=== PATIENT | female | born 1950 | race Caucasian/White ===

== ENCOUNTER → 2023-09-28 11:11 | Outpatient (REF) | payer OTHER, SELFPAY | LOC: HWRAD 11:11 | PROVIDERS: ATTENDING PHYSICIAN Family Medicine | DX: M25.551 Pain in right hip (principal) | CPT/HCPCS: 73502 ==

== ENCOUNTER → 2024-05-10 11:12 | Outpatient (REF) | payer MEDICARE, SELFPAY | LOC: HWRAD 11:12 | PROVIDERS: ATTENDING PHYSICIAN Nurse Practitioner Family | DX: R20.0 Anesthesia of skin (principal) | CPT/HCPCS: 73610; 73630 ==

== ENCOUNTER → 2024-05-18 07:48 | Outpatient (REF) | payer MEDICARE, SELFPAY | LOC: HWWDC 07:48 | PROVIDERS: ATTENDING PHYSICIAN Family Medicine | DX: M85.89 Other specified disorders of bone density and structure, multiple sites (principal); Z12.31 Encounter for screening mammogram for malignant neoplasm of breast | CPT/HCPCS: 77063; 77067; 77080 ==

== ENCOUNTER 2025-01-22 05:45 | Day surgery (SDC) | payer MEDICARE, SELFPAY ==
[2025-01-11 12:00] LABS: Hematocrit 41.5 % (37.0-47.0); Hemoglobin 13.8 g/dL (12.0-16.0); Mean Corp Hgb Conc. 33.3 g/dL (33.0-37.0); Mean Corpuscular Volume 95.6 fL (81.0-99.0); Platelet Count 214 10^3/uL (130-400); Red Cell Dist. Width 13.2 % (11.5-14.5)
[2025-01-11 13:05] LABS: Blood Urea Nitrogen 12 mg/dl (7-17); Calcium 9.2 mg/dl (8.4-10.2); Carbon Dioxide 25 mmol/L (22-30); Chloride 108 mmol/L (98-107); Glucose 81 mg/dl (70-99); Potassium 5.3 mmol/L (3.5-5.1); Sodium 141 mmol/L (135-145); eGFR > 60.00
[2025-01-11 14:09] VITALS: BMI 24.9
[2025-01-22] VITALS (9 sets, daily range): BP systolic 134–168; BP diastolic 62–89; BMI 24.9
[2025-01-22] MEDS: HEPARIN 5000 UNITS SC (06:22)
[2025-01-22] MEDS: NORMOSOL-R/PLASMALYTE-A 1000 IV (06:22)
[2025-01-22] MEDS: TYLENOL 650 MG PO (11:42)
== END 2025-01-22 13:09 | disposition home or self-care (01) ==
LOC: SDS 05:45
PROVIDERS: ATTENDING PHYSICIAN Obstetrics & Gynecology; FAMILY PHYSICIAN Family Medicine
DX: N81.3 Complete uterovaginal prolapse (principal); N39.3 Stress incontinence (female) (male)
CPT/HCPCS: 57425; 58542; 57250; 57288; 36415; 80048; 85027; 86850; 86900; 86901; 88305; 88311; C1713; C1763; C1771